=== PATIENT | male | born 1990 | race Caucasian/White ===

== ENCOUNTER 2016-03-06 10:30 | Emergency (ER) | payer MEDICAID ==
[~2016-03-06] VITALS: Wt 78.0 kg
[2016-03-06] MEDS ORDERED: IBUPROFEN 800 MG TAB PO ONE (13:00)
--- NOTE | 2016-03-06 13:33 | RADRPT ---
PROCEDURE: XR Chest/left ribs. CLINICAL INDICATION: Chest pain TECHNIQUE: Chest 1 vw ribs 2 vws. COMPARISON: No comparison study available. FINDINGS: The mediastinal structures are unremarkable. The heart is normal in size and configuration. The pu lmonary vascularity is normal. The lung ayala are unremarkable. No consolidation is identified. The pleural spaces are unremarkable.. The osseous structures are unremarkable.. No rib fracture is identified. No osseous lesion is identified. IMPRESSION: Unremarkable chest. Unremarkable ribs. RPTAT: HGDB .Alexei Harvey MD, MD Date Time Electronically viewed and signed by .Alexei Harvey MD, on 03/06/2016 13:32 .B/
[2016-03-06] MEDS ORDERED: IBUP-1542 PO (13:51)
[2016-03-06 13:57] VITALS: BP 142/78; PULSE 76; RESP 20; TEMP 98
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
== END 2016-03-06 14:43 | disposition home or self-care (01) ==
LOC: FTE 10:30
DX: S20.20XA Contusion of thorax, unspecified, initial encounter (principal); W22.8XXA Striking against or struck by other objects, initial encounter; Y92.89 Other specified places as the place of occurrence of the external cause
CPT/HCPCS: 71100; Z7502; Z7610

== ENCOUNTER 2017-05-16 15:21 | Emergency (ER) | END 2017-05-16 18:26 | disposition home or self-care (01) ==

== ENCOUNTER 2017-05-18 18:16 | Emergency (ER) | END 2017-05-19 01:54 | disposition left against medical advice (07) ==